=== PATIENT | female | born 1935 | race Caucasian/White ===

== ENCOUNTER 2023-12-20 15:11 | Inpatient (IN) | payer MEDICARE, BC, SELFPAY ==
[2023-12-20 15:40] VITALS: BP 100/52; PULSE 74; RESP 16; TEMP 36.3; O2SAT 92; BMI 24.6
[2023-12-20] MEDS: Acetaminophen 325 MG Tablet 650 MG PO (16:33)
[2023-12-20] MEDS: oxyCODONE 5 MG Tablet PO ×2 (16:33→20:51)
--- NOTE | 2023-12-20 19:36 | HP.PCM_ITS ---
HPI - General General Date of Admission: 12/20/23 Date of Service: 12/20/23 Chief Complaint: Here for rehabilitation. HPI Narrative RENATO SAUCEDA, is a 88 Female who presents with following: Patient lives outside [place], [place]. 12/17/2023 Admit to [facility] with fall, right hip pain. She fell holding a banana split sundae with large cherries, whipped cream. She was not able to eat the ice cream. X-ray showed right hip fracture. 12/18/2023 Orthopedics performed ORIF right hip fracture. WBAT right lower extremity with walker. Plavix stopped. Aspirin 81mg twice daily x 30 days DVT prophylaxis. IV iron given for anemia. PT/OT SNF, Patient lives alone. 12/20/2023 Admit to TCU with debility, here for rehabilitation, strengthening, prior to discharge home alone. [facility] Medical History (Updated 12/20/23 @ 19:[address] Allen Zaldivar MD) Tobacco abuse Vitamin D deficiency Osteoporosis Hyperlipidemia Coronary artery disease Closed right hip fracture Fall Debility Home Medications ?Medication ?Instructions ?Recorded ?Last Taken ?Type acetaminophen 325 mg tablet 650 mg PO Q6H PRN pain (scale 12/20/23 12/19/23 History score 1-5) aspirin 81 mg tablet,delayed 81 mg PO BID heart health 12/20/23 Unknown History release aspirin 81 mg tablet,delayed 81 mg PO DAILY [facility] 12/20/23 Unknown History release cholecalciferol (vitamin D3) 125 125 mcg PO .QSU supplement 12/20/23 Unknown History mcg (5,000 unit) tablet (Vitamin D3) ergocalciferol (vitamin D2) 50,000 50,000 unit PO QODAY supplement 12/20/23 Unknown History unit tablet oxycodone 5 mg tablet 5 mg PO Q8H PRN pain (scale score 12/20/23 12/20/23 History 6-10) sitagliptin phosphate 25 mg tablet 25 mg PO DAILY diabetes 12/20/23 12/18/23 History (Januvia) thyroid (pork) 90 mg tablet 90 mg PO DAILY thyroid 12/20/23 12/20/23 History (Adthyza) Allergy/AdvReac Type Severity Reaction Status Date / Time alendronate sodium (From Allergy Unknown unknown Verified 12/20/23 15:38 Fosamax) adhesive tape Allergy Rash Verified 12/20/23 15:38 celecoxib (From Celebrex) Allergy Rash Verified 12/20/23 15:38 Sulfa (Sulfonamide Allergy Rash Verified 12/20/23 15:38 Antibiotics) thimerosal Allergy unknown Verified 12/20/23 15:38 Family History (Updated 12/20/23 @ 19:[address] Allen Zaldivar MD) Mother CAD (coronary artery disease) Father [place] disease Sister Diabetes Surgical History (Updated 12/20/23 @ 19:[address] Allen Zaldivar MD) History of tubal ligation History of bunionectomy History of cataract surgery History of bladder surgery History of open reduction and internal fixation (ORIF) procedure Social History (Updated 12/20/23 @ 19:[address] Allen Zaldivar MD) household members: none Smoking Status: Current every day smoker tobacco type: cigarettes alcohol intake: current Alcohol type: wine substance use type: does not use ROS Constitutional Constitutional: Reports weakness; Denies chills, fever(s) or weight gain ENT HEENT: Denies headache(s), nasal congestion or nasal discharge Cardiovascular Cardiovascular: Denies chest pain or palpitations Respiratory/Chest Respiratory/Chest: Denies cough, excessive phlegm production or shortness of breath with exertion Gastrointestinal Gastrointestinal: Denies abdominal pain, nausea or vomiting Genitourinary Genitourinary: Denies dysuria Musculoskeletal Musculoskeletal: Denies joint pain or joint swelling Integumentary Integumentary: Denies rash or wounds Neurologic Neurologic: Denies focal weakness, numbness or tingling Psychiatric Psychiatric: Denies anxiety, auditory hallucinations, depression, homicidal ideation or suicidal ideation Vital Signs Vital Signs Vital Signs: 12/20/23 15:40 12/20/23 15:40 Temperature 97.4 F L Temperature Source Oral Pulse Rate 74 Pulse Rhythm Irregular Pulse Strength Normal (2+) Respiratory Rate 16 16 Respiratory Depth Normal Respiratory Pattern Normal Blood Pressure 100/52 L Blood Pressure Mean 68 Blood Pressure Source Monitor Blood Pressure Position Sitting Pulse Ox 92 Oxygen Delivery Method Room Air Room Air Weight Weight: 67.222 kg Body Mass Index (BMI) 24.6 Physical Exam Const alert General Appearance: cooperative HEENT normocephalic Eyes PERRL and EOMs intact bilaterally Neck supple, no JVD and no carotid bruits Resp normal respiratory effort, normal air movement and clear to auscultation bilaterally Cardio regular rate and regular rhythm GI normal to inspection, nondistended, normoactive bowel sounds, non-tender and non-distended Extremity normal capillary refill General Extremity: Negative for edema Skin no rashes or lesions noted General Skin Exam: no breakdown Psych affect normal Appearance: appropriate Assessment & Plan Assessment/Plan (1) Debility: (2) Fall: (3) Closed right hip fracture: (4) Coronary artery disease: (5) Hyperlipidemia: (6) Osteoporosis: (7) Vitamin D deficiency: (8) Tobacco abuse: PLAN: Plan 88 year old female with below past medical history hospitalized for right hip fracture, underwent ORIF right hip fracture 12/18/2023, admitted to TCU with debility, here for rehabilitation, strengthening, prior to discharge home alone. * Debility - PT/OT. * Pain - Tylenol 1000mg q6 prn pain (1-5), Oxycodone 5mg q4 prn pain (6-10). * Bowel - senna/colace 1 tablet bid, Magnesium citrate 300ml daily prn. * Adult immunization - Administer pneumonia vaccine, covid vaccine, flu vaccine as appropriate. * DVT prophylaxis - Aspirin 81mg bid thru 01/17/2024. * Coronary artery disease - Aspirin 81mg daily starting 01/18/2024. * Vitamin D deficiency - D3 125mcg q48, D2 1.25mg qweek. * Diabetes Mellitus II - Tradjenta 5mg daily, monitor sugar. * Skin irritation - Eucerin topical bid. * Hypothyroidism - [place] Thyroid 90mg daily.
[2023-12-20] MEDS: Aspirin E.C. 81 MG Tablet PO (20:51)
[2023-12-20] MEDS: Senna/Docusate Sodium 1 Tablet PO (20:51)
[2023-12-20] MEDS: Petrolatum 33% Tube 1 APPLIC TOPICAL (20:51)
[2023-12-21] MEDS: Thyroid 60 MG Tablet 90 MG PO (05:26)
[2023-12-21 06:08] LABS: Absolute Lymphocyte Count 1.63 X10^3/uL (0.83-4.51); Absolute Neutrophil Count 4.6 X10^3/uL (2.0-7.7); Basophil# 0.04 X10^3/uL; Basophil% 0.5 % (0-1); Eosinophil# 0.18 X10^3/uL; Eosinophils% 2.5 % (0-5); Hematocrit 23.7 % (37-47); Hemoglobin 7.9 g/dL (12.0-15.0); Lymphocyte # 1.63 X10^3/ul (0.83-4.51); Lymphocyte % 22.2 % (19-41); Mean Corp Hgb Conc 33.3 g/dL (32-36); Mean Corpuscular Hgb 33.3 pg (27.0-32.0); Mean Platelet Vol. 10.7 fl (6.2-12.0); Monocyte# 0.82 X10^3/uL; Monocyte% 11.2 % (0-10); NRBC Flagged by Analyzer 0 % (0-5); Neutrophil # 4.56 X10^3/uL (2.7-7.7); Neutrophil % 62.2 % (47-70); Platelet Count 167 K/mm3 (150-450); RBC Distribution Width CV 13.1 % (11.6-14.6); RBC Distribution Width SD 46.9 fl (35.1-43.9); Red Blood Count 2.37 M/mm3 (4.2-5.4); White Blood Count 7.3 K/mm3 (4.4-11.0)
[2023-12-21 06:33] LABS: Anion Gap 4 (5-15); BUN 15 mg/dL (7-18); BUN/Creat Ratio 22.1 RATIO (10-20); Calcium,Total 8.1 mg/dL (8.5-10.1); Chloride 105 mmol/L (98-107); Creatinine, Serum 0.68 mg/dL (0.55-1.02); EST Glomerular Filtration Rate 87 mL/min (>60); Est Glom Filt Rate - Afr Amer 105 mL/min (>60); Estimated Creatinine Clearance 45.42 ml/min; Glucose 152 mg/dL (74-106); Potassium 4.2 mmol/L (3.5-5.1); Sodium Level 136 mmol/L (136-145)
[2023-12-21 06:38] LABS: Bedside Glucose 138 mg/dL (74-106)
--- NOTE | 2023-12-21 08:25 | NURSING ---
Patient has not had BM since 12/17/23. She states she has not eaten much since surgery. Discussed with patient the need to have regular bowel movements and will administer Magnesium Citrate today. Patient verbalized understanding. Will continue to monitor.
[2023-12-21] MEDS: Senna/Docusate Sodium 1 Tablet PO (08:56)
[2023-12-21] MEDS: Magnesium Citrate 300 ML PO (08:57)
[2023-12-21] MEDS: Petrolatum 33% Tube 1 APPLIC TOPICAL ×2 (08:57→21:17)
[2023-12-21] MEDS: LINAGLIPTIN 5 MG TABLET PO (08:57)
[2023-12-21] MEDS: Aspirin E.C. 81 MG Tablet PO ×2 (08:57→21:12)
[2023-12-21] MEDS: Tuberculin,Purif.prot.deriv. 50 TU/ML Vial 0.1 ML ID (09:01)
--- NOTE | 2023-12-21 09:43 | PCM.PN.DRR ---
TCU RX Drug Regimen Review Subjective/Objective Subjective/Objective: Subjective: 88 YOF admitted to TCU 12/20/23 s/p outside hospitalization for a ORIF of the hip which resulted from a fall at home. Patient admitted to TCU for strengthening and rehabilitation prior to discharge home where she resides alone. Objective: Allergies alendronate sodium (From Fosamax) Allergy (Unknown, Verified 12/20/23 15:38) unknown adhesive tape Allergy (Verified 12/20/23 15:38) Rash celecoxib (From Celebrex) Allergy (Verified 12/20/23 15:38) Rash Sulfa (Sulfonamide Antibiotics) Allergy (Verified 12/20/23 15:38) Rash thimerosal Allergy (Verified 12/20/23 15:38) unknown Current Medications Generic Name Dose Route Start Last Admin Trade Name Freq PRN Reason Stop Dose Admin Acetaminophen 1,000 mg 12/20/23 19:50 Acetaminophen 500 Mg Tablet PO Q6H PRN pain (scale score 1-5) Aspirin 81 mg 12/20/23 22:00 12/21/23 08:57 Aspirin E.C. 81 Mg Tablet PO 01/17/24 22:00 81 mg BID NIKKI Administration Aspirin 81 mg 01/18/24 10:00 Aspirin E.C. 81 Mg Tablet PO DAILY [facility] Cholecalciferol 125 mcg 12/22/23 10:00 Cholecalciferol (Vit D3) 125 Mcg Capsule (5,000 Units) PO Q48 NIKKI Ergocalciferol 1.25 mg 12/23/23 10:00 Ergocalciferol 1.25 Mg (50, 000 Unit) Capsule PO Wills@1000 [facility] Linagliptin 5 mg 12/21/23 10:00 12/21/23 08:57 Linagliptin 5 Mg Tablet PO 5 mg DAILY NIKKI Administration Magnesium Citrate 300 ml 12/20/23 19:49 12/21/23 08:57 Magnesium Citrate 300 Ml PO 300 ml DAILY PRN Administration Constipation Multi-Ingredient Cream 1 applic 12/20/23 22:00 12/21/23 08:57 Petrolatum 33% Tube TOPICAL 1 applic BID NIKKI Administration Protocol Oxycodone HCl 5 mg 12/20/23 19:50 12/20/23 20:51 Oxycodone 5 Mg Tablet PO 5 mg Q4H PRN PRN Administration pain (scale score 6-10) Senna/Docusate Sodium 1 tablet 12/20/23 22:00 12/21/23 08:56 Senna/Docusate Sodium 1 Tablet PO 1 tablet BID NIKKI Administration Sodium Chloride 10 - 40 ml 12/20/23 15:43 0.9% Saline Lock 10 Ml Syringe IV UD PRN SALINE FLUSH Thyroid 90 mg 12/21/23 06:00 12/21/23 05:26 Thyroid 60 Mg Tablet PO 90 mg DAILY@0600 NIKKI Administration Tuberculin PPD 0.1 ml 12/21/23 10:00 12/21/23 09:01 Tuberculin,Purif.Prot.Deriv. 50 Tu/Ml Vial ID 12/21/23 10:01 0.1 ml X1 ONE Administration Tuberculin PPD 0.1 ml 12/28/23 10:00 Tuberculin,Purif.Prot.Deriv. 50 Tu/Ml Vial ID 12/28/23 10:01 X1 ONE Problem List Tobacco abuse (Acute) Vitamin D deficiency (Acute) Osteoporosis (Acute) Hyperlipidemia (Acute) Coronary artery disease (Acute) Closed right hip fracture (Acute) Fall (Acute) Debility (Acute) Vital Signs Temp Pulse Resp BP Pulse Ox O2 Del Method 97.4 F L 74 16 100/52 L 92 Room Air 12/20/23 15:40 12/20/23 15:40 12/20/23 15:40 12/20/23 15:40 12/20/23 15:40 12/20/23 15:40 Oxygen Delivery Method Room Air Weight: 67.222 kg Body Mass Index (BMI) 24.6 Sodium 136 mmol/L (136-145) 12/21/23 05:29 Potassium 4.2 mmol/L (3.5-5.1) 12/21/23 05:29 Chloride 105 mmol/L (98-107) 12/21/23 05:29 Carbon Dioxide 27.0 mmol/L (21.0-32.0) 12/21/23 05:29 Anion Gap 4 (5-15) L 12/21/23 05:29 BUN 15 mg/dL (7-18) 12/21/23 05:29 Creatinine 0.68 mg/dL (0.55-1.02) 12/21/23 05:29 Est GFR (MDRD) Af Amer 105 mL/min (>60) 12/21/23 05:29 Est GFR (MDRD) Non-Af 87 mL/min (>60) 12/21/23 05:29 BUN/Creatinine Ratio 22.1 RATIO (10-20) H 12/21/23 05:29 Glucose 152 mg/dL (74-106) H 12/21/23 05:29 Assessment/Plan: 1. Pain: Tylenol 1000mg PO Q6h PRN Pain 1-5, Oxycodone 5mg PO Q4h PRN Pain 6-10. Please continue to monitor for S/S of increased/decreased pain, PRN medication usage, constipation/oversedation/respiratory depression with narcotic usage. -To date, the patient has required one dosage each of Tylenol and Oxycodone. Pre-med hip pain rated 8/10, post-med pain rated 0-4/10. Pain appears managed using this regimen at this time. 2. Post-OP DVT Prophylaxis: Aspirin 81mg PO BID thru 01/17/24 then 81mg PO daily thereafter. Please continue to monitor for S/S bleeding/ bruising, S/S developing post-op blood clot, H/H (hgb 7.9, hct 23.7 on 12/20). 3. Type II Diabetes: Tradjenta 5mg PO Daily. Please continue to monitor for hyper/hypoglycemia, A1c (not on file), blood glucose levels (152 on 12/20). 4. Hypothyroidism: Thyroid 90mg PO Daily. Please continue to monitor TSH levels (none on file), S/S hyper/hypothyroidism. 5. Vitamin D Deficiency: Vitamin D 125mcg PO Q48h, Ergocalciferol 1.25mg PO once weekly. Please continue to monitor Vitamin D levels as clinically indicated (none on file). 6. Skin Dryness: Eucerin Cream topically BID. Please continue to monitor for further skin irritation, medication effectiveness. 7. Bowel: Senna/Docusate 1 tab PO BID, Magnesium Citrate 300mL PO Daily PRN. Please continue to monitor for increased/decreased constipation and/or diarrhea. - to date, the patient does not have a documented bowel movement. Patient was admitted <24hrs ago. If no BM in the next 48hrs, please consider administering PRN medication to help facilitate a BM, given pt is using narcotic medications for pain. Assessment/Plan for indications treated with psychotropic medications: -The patient is not currently being maintained on psychotropic medications at time of medication list review. Medical chart and medication regimen reviewed. The following medication irregularities or issues were identified: 1. Type II Diabetes: The patient is currently being treated for diabetes. No A1c currently on file. Please consider obtaining an A1c if clinically indicated, thank you. 2. Hypothyroid: Please consider obtaining thyroid function tests if clinically indicated. No labs on file, currently on pharmacologic treatment. 3. Vitamin D Deficiency: Patient on once weekly and Q48h Vitamin D at this time. Please consider obtaining a Vitamin D level for this patient if clinically indicated, none on file at present. Thank you. Date Date of Note:: 12/21/23
[2023-12-21] MEDS: oxyCODONE 5 MG Tablet PO ×2 (11:03→21:12)
--- NOTE | 2023-12-21 11:36 | NURSING ---
Supervisor Fertilizer Note; Activity Asset: Dinorah Melo prefers to be called Jolly. Jolly is independent in her choice of daily activities. She stated she will call the [employer] in [place] to bring her communion and welcomes visits from the sanding line operator and therapy dog when available. She watch tv, read and enjoys family. Staff will encourage social activities, remind her of weekly activities and respect her right to say no.
[2023-12-21 12:00] VITALS: PULSE 80; RESP 16; O2SAT 98
--- NOTE | 2023-12-21 13:39 | CASEMGMT ---
Social Work SW met with patient to complete initial assessment. Introduced self and role. Verified/updated contacts. Patient wishes to be DNR-CCA, no intubation. Nursing notified (12/24/23). SW requested pt have child provide copies of advanced directives. Pt could not recall whom she named. SW offered to complete new documents if needed. SW educated to Medicare benefit and copay coverage. Pt's goal is to return home alone at [facility]. SW will continue to follow for DC planning. SUSANA Francisco COSTUME MAKER
[2023-12-21 15:43] VITALS: BP 112/44; PULSE 80; RESP 16; TEMP 36.5; O2SAT 98
[2023-12-21] MEDS: Acetaminophen 500 MG Tablet 1000 MG PO (21:13)
[2023-12-22 06:24] LABS: Bedside Glucose 131 mg/dL (74-106)
[2023-12-22] MEDS: Thyroid 60 MG Tablet 90 MG PO (06:29)
[2023-12-22] MEDS: oxyCODONE 5 MG Tablet PO ×2 (06:33→19:59)
--- NOTE | 2023-12-22 06:39 | NURSING ---
Resident has a long-term hx of tobacco abuse. Offered nicotine patch and resident declines.
[2023-12-22 06:58] LABS: Hemoglobin 8.5 g/dL (12.0-15.0)
[2023-12-22] MEDS: Aspirin E.C. 81 MG Tablet PO ×2 (08:14→20:00)
[2023-12-22] MEDS: LINAGLIPTIN 5 MG TABLET PO (08:14)
[2023-12-22] MEDS: Senna/Docusate Sodium 1 Tablet PO ×2 (08:14→20:00)
[2023-12-22] MEDS: Cholecalciferol (Vit D3) 125 MCG CAPSULE (5,000 UNITS) PO (08:15)
[2023-12-22] MEDS: Petrolatum 33% Tube 1 APPLIC TOPICAL (08:17)
[2023-12-22 15:55] VITALS: BP 107/37; PULSE 74; RESP 16; TEMP 35.8; O2SAT 96
[2023-12-22] MEDS: Acetaminophen 500 MG Tablet 1000 MG PO (19:59)
[2023-12-22 20:05] VITALS: RESP 16
[2023-12-23] MEDS: Thyroid 60 MG Tablet 90 MG PO (05:12)
[2023-12-23 05:24] LABS: Hematocrit 24.1 % (37-47); Hemoglobin 8.2 g/dL (12.0-15.0)
[2023-12-23 06:49] LABS: Bedside Glucose 162 mg/dL (74-106)
[2023-12-23] MEDS: Aspirin E.C. 81 MG Tablet PO ×2 (08:32→18:09)
[2023-12-23] MEDS: Acetaminophen 500 MG Tablet 1000 MG PO (08:36)
[2023-12-23] MEDS: oxyCODONE 5 MG Tablet PO ×3 (08:36→21:04)
[2023-12-23 10:30] VITALS: PULSE 79; RESP 16
[2023-12-23] MEDS: LINAGLIPTIN 5 MG TABLET PO (10:53)
[2023-12-23] MEDS: Senna/Docusate Sodium 1 Tablet PO ×2 (10:53→21:04)
[2023-12-23] MEDS: Ergocalciferol 1.25 MG (50, 000 UNIT) Capsule PO (10:53)
[2023-12-23] MEDS: Petrolatum 33% Tube 1 APPLIC TOPICAL ×2 (10:54→21:05)
[2023-12-23 16:00] VITALS: BP 143/48; PULSE 78; RESP 14; TEMP 36.4; O2SAT 98
[2023-12-24] MEDS: Thyroid 60 MG Tablet 90 MG PO (05:02)
[2023-12-24] MEDS: oxyCODONE 5 MG Tablet PO ×4 (05:03→22:46)
[2023-12-24 05:49] LABS: Hematocrit 23.9 % (37-47)
[2023-12-24 06:37] LABS: Bedside Glucose 141 mg/dL (74-106)
[2023-12-24] MEDS: Cholecalciferol (Vit D3) 125 MCG CAPSULE (5,000 UNITS) PO (07:41)
[2023-12-24] MEDS: LINAGLIPTIN 5 MG TABLET PO (07:41)
[2023-12-24] MEDS: Senna/Docusate Sodium 1 Tablet PO ×2 (07:41→22:49)
[2023-12-24] MEDS: Petrolatum 33% Tube 1 APPLIC TOPICAL ×2 (07:42→22:43)
[2023-12-24] MEDS: Aspirin E.C. 81 MG Tablet PO ×2 (07:42→16:28)
[2023-12-24] MEDS: Iron Polysaccharide Complex 150 MG CAPSULE PO (08:55)
[2023-12-24 09:06] VITALS: PULSE 72; RESP 16; O2SAT 96
[2023-12-24 11:44] VITALS: BP 109/50; PULSE 72; RESP 16; TEMP 36.3; O2SAT 96
[2023-12-25] MEDS: Thyroid 60 MG Tablet 90 MG PO (05:49)
[2023-12-25 06:14] LABS: Bedside Glucose 149 mg/dL (74-106)
[2023-12-25] MEDS: Iron Polysaccharide Complex 150 MG CAPSULE PO (08:48)
[2023-12-25] MEDS: LINAGLIPTIN 5 MG TABLET PO (08:48)
[2023-12-25] MEDS: Senna/Docusate Sodium 1 Tablet PO ×2 (08:49→20:55)
[2023-12-25] MEDS: Petrolatum 33% Tube 1 APPLIC TOPICAL ×2 (08:49→20:55)
[2023-12-25] MEDS: Aspirin E.C. 81 MG Tablet PO ×2 (08:49→16:52)
[2023-12-25 15:57] VITALS: BMI 23.6
[2023-12-25 16:00] VITALS: BP 129/46; PULSE 88; RESP 22; TEMP 36.1; O2SAT 100
[2023-12-25] MEDS: Acetaminophen 500 MG Tablet 1000 MG PO (16:51)
[2023-12-26] MEDS: Acetaminophen 500 MG Tablet 1000 MG PO ×3 (03:26→22:02)
--- NOTE | 2023-12-26 03:34 | NURSING ---
Resident yelling for help from room. This nurse and ION IMPLANT MACHINE OPERATOR entered room and resident was sitting on the edge of her bed. Was transferred to her recliner per another ION IMPLANT MACHINE OPERATOR recently d/t resident request to get out of bed. Call light was on the floor between the recliner and bed. Room camera in use. Bed and chair alarms initiated as this is the second self transfer noted per nursing staff. Positioned in bed for comfort and polar care applied to rt hip. Resident reports rt hip pain and headache. Questions why she was not medicated at bedtime. Informed resident when this nurse assessed pain, she denied any c/o. Has no medication for pain currently scheduled. Does not comprehend the pain scale when explained per this nurse. Refuses Oxycodone. Given Tylenol per order- refer to MAR. Call light w/ in reach. Will continue to monitor.
--- NOTE | 2023-12-26 04:11 | NURSING ---
Addendum entered by Simran Esquivel 12/26/23 08:25: Upon this worker's admission assessment, SW noted cognitive impairment and entered ST order. During IDT Huddle the following day, ST expressed pt does have cognitive impairment, but IDT agreed with additional assistance in the home, pt can return home safely. SW and IDT will address this with family at POC and during ongoing DC planning. Original Note: Left vm for DEYANIRA Khalil, re: cognitive impairment. Resident was living alone prior to hospitalization. Has completed two unassisted transfers per nursing's observation. Experiences difficulty comprehending concepts related to post-op safety awareness w/ mobility. Has difficulty identifying and describing pain when assessed per nursing. Unsure if resident's children are aware of cognitive deficits.
[2023-12-26 05:47] LABS: Hematocrit 24.3 % (37-47); Hemoglobin 7.9 g/dL (12.0-15.0)
[2023-12-26] MEDS: Thyroid 60 MG Tablet 90 MG PO (06:09)
[2023-12-26 06:47] LABS: Bedside Glucose 142 mg/dL (74-106)
[2023-12-26] MEDS: oxyCODONE 5 MG Tablet PO (06:56)
[2023-12-26] MEDS: LINAGLIPTIN 5 MG TABLET PO (09:02)
[2023-12-26] MEDS: Senna/Docusate Sodium 1 Tablet PO ×2 (09:02→22:03)
[2023-12-26] MEDS: Iron Polysaccharide Complex 150 MG CAPSULE PO (09:02)
[2023-12-26] MEDS: Cholecalciferol (Vit D3) 125 MCG CAPSULE (5,000 UNITS) PO (09:02)
[2023-12-26] MEDS: Petrolatum 33% Tube 1 APPLIC TOPICAL ×2 (09:02→22:03)
[2023-12-26] MEDS: Aspirin E.C. 81 MG Tablet PO ×2 (09:02→17:37)
--- NOTE | 2023-12-26 09:05 | CASEMGMT ---
Social Work IDT met with patient and three children for care plan meeting. Discussed patient's progress in PT/OT/ST/SN. Educated to Medicare benefit. Provided pt/family written communication on insurance process and copay coverage during stay. Discussed concerns with cognitive impairment and safety home alone. Family stated pt's granddaughter, who is an aide at a intermediate, will be moving in with pt and assisting. Family did confirm they have noticed a change in her cognition since pt's prior heart attack and it is worse in the evenings. Offered resources such as nonskilled SUPERVISOR ENGINE ASSEMBLY, medical alert, medication dispenser with reminders, MOW. Noted pt may improve with return to own environment. Educated to skilled HHC at time of DC. Offered therapy family training. Family appreciative of assistance. SW will continue to follow for DC planning. Simran Esquivel, AQUARIUM SPECIALIST COUNTER CONTROL OPERATOR
--- NOTE | 2023-12-26 09:55 | NURSING ---
Pt and family updated on positive covid pt.
[2023-12-26 14:53] VITALS: BP 127/52; PULSE 82; RESP 20; TEMP 37.2; O2SAT 97
[2023-12-26] MEDS: Magnesium Citrate 300 ML PO (15:06)
[2023-12-27 05:33] LABS: Hematocrit 26.3 % (37-47); Hemoglobin 8.3 g/dL (12.0-15.0)
[2023-12-27] MEDS: Acetaminophen 500 MG Tablet 1000 MG PO ×3 (05:51→21:08)
[2023-12-27] MEDS: Thyroid 60 MG Tablet 90 MG PO (05:51)
[2023-12-27 06:41] LABS: Bedside Glucose 136 mg/dL (74-106)
--- NOTE | 2023-12-27 09:13 | CASEMGMT ---
BIMS (03/11) and PHQ9() interviews completed on this date for MDS assessment. MARIELENA Bray
[2023-12-27] MEDS: Aspirin E.C. 81 MG Tablet PO ×2 (09:48→18:36)
[2023-12-27] MEDS: Iron Polysaccharide Complex 150 MG CAPSULE PO (09:48)
[2023-12-27] MEDS: LINAGLIPTIN 5 MG TABLET PO (09:49)
[2023-12-27] MEDS: Petrolatum 33% Tube 1 APPLIC TOPICAL ×2 (09:50→21:08)
[2023-12-27] MEDS: oxyCODONE 5 MG Tablet PO ×2 (10:53→18:40)
[2023-12-27 16:00] VITALS: BP 115/44; PULSE 73; RESP 16; TEMP 36.3; O2SAT 99
--- NOTE | 2023-12-27 17:14 | RAD_ITS ---
EXAM: XR RIGHT KNEE, 3 VIEWS CLINICAL INDICATION: Pain. TECHNIQUE: Three views of the right knee. COMPARISON: Hip on the same date. FINDINGS: BONES/JOINTS: Intramedullary fixation of the femur correlate with comparison examination for proximal femoral fracture. Severe arthritic changes of the knee with marginal osteophytes, medial and patellofemoral weightbearing compartment joint space narrowing, and cortical irregularity of the femoral condyle and tibial plateau in the medial compartment. Small joint effusion at the knee. No sclerotic or destructive changes observed. SOFT TISSUES: Mild soft tissue swelling. No radiopaque foreign body. VASCULATURE: Vascular calcifications. RAD/Knee 3 Views IMPRESSION: 1. Intramedullary fixation of the femur correlate with comparison examination for proximal femoral fracture. 2. Small joint effusion at the knee. Extensive degenerative changes at the knee. No acute osseous abnormality. Electronically Signed: Jai Pisano DO at 22:22 EDT ,
--- NOTE | 2023-12-27 18:20 | RAD_ITS ---
EXAM: XR RIGHT HIP WITH PELVIS WHEN PERFORMED, 2 OR 3 VIEWS CLINICAL INDICATION: Pain. TECHNIQUE: Two or three views of the right hip with pelvis when performed. COMPARISON: Knee on the same date. FINDINGS: BONES/JOINTS: Underlying right proximal femur fracture. Essentially anatomic alignment. ORIF of the right femur with intramedullary fixation. Degenerative changes in the lower lumbar spine, SI joints, and bilateral hips. No destructive or sclerotic lesions. Note that overlapping bowel shadows may however obscure fine detail. No widening of the pubic symphysis. SOFT TISSUES: Expected postoperative changes in the surrounding soft tissues. RAD/HIP, UNI W/ Pelvis 2-3 Views IMPRESSION: 1. Underlying right proximal femur fracture. Essentially anatomic alignment. 2. ORIF of the right femur with intramedullary fixation. 3. Degenerative changes in the lower lumbar spine, SI joints, and bilateral hips. Electronically Signed: Jai Pisano DO at 23:52 EDT ,
--- NOTE | 2023-12-27 19:49 | NURSING ---
Patient c/o increased pain to right knee and lower leg and not able to complete therapy d/t pain. Right leg very bruised and swelling noted. Dr. Zaldivar made aware and NO for x-ray to right hip and knee and Doppler to right leg.
[2023-12-27 20:00] VITALS: PULSE 82; O2SAT 97
[2023-12-28] MEDS: Acetaminophen 500 MG Tablet 1000 MG PO ×3 (05:38→21:26)
[2023-12-28] MEDS: Thyroid 60 MG Tablet 90 MG PO (05:38)
[2023-12-28 06:30] LABS: Absolute Lymphocyte Count 1.72 X10^3/uL (0.83-4.51); Absolute Neutrophil Count 4.1 X10^3/uL (2.0-7.7); Basophil# 0.03 X10^3/uL; Basophil% 0.4 % (0-1); Eosinophils% 2.9 % (0-5); Hematocrit 26.1 % (37-47); Hemoglobin 8.2 g/dL (12.0-15.0); Lymphocyte # 1.72 X10^3/ul (0.83-4.51); Lymphocyte % 25.3 % (19-41); Mean Corp Hgb Conc 31.4 g/dL (32-36); Mean Corpuscular Hgb 33.9 pg (27.0-32.0); Mean Corpuscular Volume 107.9 fL (81-99); Mean Platelet Vol. 9.4 fl (6.2-12.0); Monocyte# 0.58 X10^3/uL; Monocyte% 8.5 % (0-10); NRBC Flagged by Analyzer 0.3 % (0-5); Neutrophil # 4.11 X10^3/uL (2.7-7.7); Neutrophil % 60.5 % (47-70); Platelet Count 342 K/mm3 (150-450); RBC Distribution Width CV 15.9 % (11.6-14.6); RBC Distribution Width SD 60.3 fl (35.1-43.9); Red Blood Count 2.42 M/mm3 (4.2-5.4); White Blood Count 6.8 K/mm3 (4.4-11.0)
[2023-12-28 06:45] LABS: Bedside Glucose 139 mg/dL (74-106)
[2023-12-28 07:13] LABS: Anion Gap 4 (5-15); BUN 14 mg/dL (7-18); Calcium,Total 8.6 mg/dL (8.5-10.1); Chloride 107 mmol/L (98-107); Creatinine, Serum 0.78 mg/dL (0.55-1.02); EST Glomerular Filtration Rate 75 mL/min (>60); Est Glom Filt Rate - Afr Amer 90 mL/min (>60); Estimated Creatinine Clearance 45.42 ml/min; Glucose 134 mg/dL (74-106); Potassium 4.5 mmol/L (3.5-5.1); Sodium Level 138 mmol/L (136-145)
[2023-12-28] MEDS: Iron Polysaccharide Complex 150 MG CAPSULE PO (09:21)
[2023-12-28] MEDS: Aspirin E.C. 81 MG Tablet PO ×2 (09:21→16:27)
[2023-12-28] MEDS: predniSONE 10 MG Tablet PO (09:22)
[2023-12-28] MEDS: Pantoprazole Sodium 40 MG Tablet PO (09:23)
[2023-12-28] MEDS: Cholecalciferol (Vit D3) 125 MCG CAPSULE (5,000 UNITS) PO (09:23)
[2023-12-28] MEDS: LINAGLIPTIN 5 MG TABLET PO (09:23)
[2023-12-28] MEDS: Petrolatum 33% Tube 1 APPLIC TOPICAL ×2 (09:24→21:26)
[2023-12-28] MEDS: oxyCODONE 5 MG Tablet PO ×4 (09:29→22:40)
--- NOTE | 2023-12-28 11:08 | NURSING ---
Venous Doppler performed, negative for DVT. Patient, daughter updated.
[2023-12-28 11:13] VITALS: PULSE 72; RESP 16; O2SAT 96
[2023-12-28 11:25] VITALS: BP 123/46; PULSE 72; RESP 16; TEMP 36.3; O2SAT 96
--- NOTE | 2023-12-28 12:59 | NURSING ---
Transmission Engineer Note; MDS for 12/27/2023 Complete
[2023-12-28] MEDS: Tuberculin,Purif.prot.deriv. 50 TU/ML Vial 0.1 ML ID (14:05)
[2023-12-28] MEDS: Senna/Docusate Sodium 1 Tablet PO (21:26)
[2023-12-28 22:05] LABS: Bacteria 0 SEEN /hpf (None Seen); Color, Urine Yellow (Yellow); Glucose, Dipstick 250 mg/dl (Normal); Ketone-Dipstick Negative (Negative); Leukocyte Esterase-Dipstick 25 /ul (Negative); Mucous, Urine 0 SEEN /hpf (<or=2+); Nitrite-Dipstick Negative (Negative); Occult Blood-Urine 10 /ul (Negative); Protein-Dipstick Negative (Negative); Squamous Epithelial Cells - UA 0 SEEN /hpf (5-10); Urine Bilirubin Dipstick Negative (Negative); Urine Clarity Clear (Clear); Urine Urobilinogen Normal (Normal)
[2023-12-28 22:21] LABS: Red Blood Cells-Urine 0-5 SEEN /hpf (0-5); White Blood Cells 0-5 SEEN /hpf (0-5)
[2023-12-29 04:59] LABS: Hematocrit 26.1 % (37-47); Hemoglobin 8.2 g/dL (12.0-15.0)
[2023-12-29] MEDS: Thyroid 60 MG Tablet 90 MG PO (05:46)
[2023-12-29] MEDS: Acetaminophen 500 MG Tablet 1000 MG PO ×3 (05:46→22:30)
[2023-12-29 06:51] LABS: Bedside Glucose 143 mg/dL (74-106)
[2023-12-29] MEDS: Senna/Docusate Sodium 1 Tablet PO (08:19)
[2023-12-29] MEDS: Iron Polysaccharide Complex 150 MG CAPSULE PO (08:19)
[2023-12-29] MEDS: predniSONE 10 MG Tablet PO (08:19)
[2023-12-29] MEDS: Aspirin E.C. 81 MG Tablet PO ×2 (08:19→17:48)
[2023-12-29] MEDS: Pantoprazole Sodium 40 MG Tablet PO (08:19)
[2023-12-29] MEDS: LINAGLIPTIN 5 MG TABLET PO (08:19)
[2023-12-29] MEDS: Petrolatum 33% Tube 1 APPLIC TOPICAL ×2 (08:20→22:30)
[2023-12-29] MEDS: oxyCODONE 5 MG Tablet PO ×3 (13:00→22:28)
[2023-12-29 14:06] VITALS: BP 123/43; PULSE 85; RESP 20; TEMP 36.9; O2SAT 97
--- NOTE | 2023-12-29 17:38 | RAD_ITS ---
EXAM: XR RIGHT ANKLE COMPLETE, 3 OR MORE VIEWS CLINICAL INDICATION: Pain TECHNIQUE: Frontal, lateral and oblique views of the right ankle. COMPARISON: No relevant prior studies available. FINDINGS: BONES/JOINTS: Mild joint space narrowing, especially laterally. No acute fracture. No subluxation. Normal alignment. No sclerotic or destructive changes observed. SOFT TISSUES: Mild soft tissue swelling, especially laterally. No radiopaque foreign body. RAD/Ankle min 3 Views IMPRESSION: Mild soft tissue swelling. Electronically Signed: Elida Velarde MD at 21:10 EDT ,
[2023-12-30] MEDS: oxyCODONE 5 MG Tablet PO ×3 (02:40→21:37)
[2023-12-30] MEDS: Acetaminophen 500 MG Tablet 1000 MG PO ×3 (06:20→21:34)
[2023-12-30] MEDS: Thyroid 60 MG Tablet 90 MG PO (06:21)
[2023-12-30 06:43] LABS: Bedside Glucose 98 mg/dL (74-106)
[2023-12-30] MEDS: LINAGLIPTIN 5 MG TABLET PO (08:58)
[2023-12-30] MEDS: Pantoprazole Sodium 40 MG Tablet PO (08:58)
[2023-12-30] MEDS: Senna/Docusate Sodium 1 Tablet PO ×2 (08:58→21:33)
[2023-12-30] MEDS: Iron Polysaccharide Complex 150 MG CAPSULE PO (08:58)
[2023-12-30] MEDS: Aspirin E.C. 81 MG Tablet PO ×2 (08:58→17:41)
[2023-12-30] MEDS: predniSONE 10 MG Tablet PO (08:58)
[2023-12-30] MEDS: Ergocalciferol 1.25 MG (50, 000 UNIT) Capsule PO (09:00)
[2023-12-30] MEDS: Cholecalciferol (Vit D3) 125 MCG CAPSULE (5,000 UNITS) PO (09:00)
[2023-12-30] MEDS: Petrolatum 33% Tube 1 APPLIC TOPICAL ×2 (11:19→21:34)
[2023-12-30 13:07] VITALS: BP 104/50; PULSE 72; RESP 20; TEMP 36.7; O2SAT 99
[2023-12-31] MEDS: Thyroid 60 MG Tablet 90 MG PO (05:27)
[2023-12-31] MEDS: oxyCODONE 5 MG Tablet PO ×4 (05:29→22:30)
[2023-12-31] MEDS: Acetaminophen 500 MG Tablet 1000 MG PO ×3 (05:30→22:14)
[2023-12-31 06:17] LABS: Bedside Glucose 99 mg/dL (74-106)
[2023-12-31 08:05] LABS: Hematocrit 27.6 % (37-47); Hemoglobin 8.8 g/dL (12.0-15.0)
[2023-12-31] MEDS: Aspirin E.C. 81 MG Tablet PO ×2 (09:20→17:32)
[2023-12-31] MEDS: Pantoprazole Sodium 40 MG Tablet PO (09:20)
[2023-12-31] MEDS: Iron Polysaccharide Complex 150 MG CAPSULE PO (09:20)
[2023-12-31] MEDS: predniSONE 10 MG Tablet PO (09:20)
[2023-12-31] MEDS: Senna/Docusate Sodium 1 Tablet PO ×2 (09:20→22:14)
[2023-12-31] MEDS: LINAGLIPTIN 5 MG TABLET PO (09:21)
[2023-12-31] MEDS: Petrolatum 33% Tube 1 APPLIC TOPICAL ×2 (09:24→22:15)
--- NOTE | 2023-12-31 09:42 | MDS.RN ---
Information for the MDS was obtained from review of the clinical record, interview of resident, staff, and direct observation of resident?s care.
[2023-12-31 16:00] VITALS: BP 129/43; PULSE 75; RESP 18; TEMP 36.5; O2SAT 98
[2023-12-31] MEDS: Magnesium Citrate 300 ML PO (18:19)
[2024-01-01] MEDS: Thyroid 60 MG Tablet 90 MG PO (05:47)
[2024-01-01] MEDS: Acetaminophen 500 MG Tablet 1000 MG PO ×3 (05:48→20:37)
[2024-01-01 06:40] LABS: Bedside Glucose 151 mg/dL (74-106)
[2024-01-01 06:55] VITALS: RESP 16
[2024-01-01 08:43] VITALS: BP 113/60; PULSE 69; RESP 16; TEMP 36.1; O2SAT 97
[2024-01-01] MEDS: oxyCODONE 5 MG Tablet PO ×2 (08:46→20:37)
[2024-01-01] MEDS: Aspirin E.C. 81 MG Tablet PO ×2 (08:47→18:24)
[2024-01-01] MEDS: Iron Polysaccharide Complex 150 MG CAPSULE PO (08:47)
[2024-01-01] MEDS: predniSONE 10 MG Tablet PO (08:48)
[2024-01-01] MEDS: Petrolatum 33% Tube 1 APPLIC TOPICAL ×2 (08:48→20:30)
[2024-01-01] MEDS: LINAGLIPTIN 5 MG TABLET PO (08:49)
[2024-01-01] MEDS: Pantoprazole Sodium 40 MG Tablet PO (08:49)
[2024-01-01] MEDS: Cholecalciferol (Vit D3) 125 MCG CAPSULE (5,000 UNITS) PO (08:50)
--- NOTE | 2024-01-01 09:23 | CASEMGMT ---
Social Work SW received call from dtrAzucena, inquiring about insurance information and DC planning. SW reeducated to Medicare benefit and encouraged to contact secondary insurance to ensure copay coverage. Dtr stated her brother plans to call the secondary insurance to inquire. SW educated this worker will provide advanced notice for setting a DC date when mutually agreed upon DC goals are met, along with coordinating any needs at DC. SW reiterated pt's need for additional assistance in the home, but will provide any updated recommendations at time of DC. Dtr also requested to speak with Dr. Zaldivar. SW provided written communication to to call this evening. Dtr appreciative. SW will continue to follow for DC planning. SUSANA FranciscoW
[2024-01-01 09:36] VITALS: BMI 23.8
[2024-01-01] MEDS: Gabapentin 100 MG Capsule PO (18:25)
[2024-01-01] MEDS: Senna/Docusate Sodium 1 Tablet PO (20:30)
[2024-01-02] MEDS: oxyCODONE 5 MG Tablet PO ×2 (05:33→20:58)
[2024-01-02] MEDS: Thyroid 60 MG Tablet 90 MG PO (05:33)
[2024-01-02] MEDS: Acetaminophen 500 MG Tablet 1000 MG PO ×3 (05:33→20:56)
[2024-01-02 05:45] VITALS: RESP 15
[2024-01-02 06:38] LABS: Bedside Glucose 90 mg/dL (74-106)
[2024-01-02] MEDS: Gabapentin 100 MG Capsule PO ×3 (09:21→17:02)
[2024-01-02] MEDS: Iron Polysaccharide Complex 150 MG CAPSULE PO (09:22)
[2024-01-02] MEDS: Pantoprazole Sodium 40 MG Tablet PO (09:22)
[2024-01-02] MEDS: Aspirin E.C. 81 MG Tablet PO ×2 (09:22→17:02)
[2024-01-02] MEDS: LINAGLIPTIN 5 MG TABLET PO (09:22)
[2024-01-02] MEDS: predniSONE 10 MG Tablet PO (09:22)
[2024-01-02] MEDS: Petrolatum 33% Tube 1 APPLIC TOPICAL ×2 (09:22→20:55)
[2024-01-02 11:27] VITALS: BP 121/40; PULSE 70; RESP 16; TEMP 36.6; O2SAT 92
[2024-01-03 06:30] LABS: Bedside Glucose 123 mg/dL (74-106)
[2024-01-03] MEDS: Thyroid 60 MG Tablet 90 MG PO (06:34)
[2024-01-03] MEDS: Acetaminophen 500 MG Tablet 1000 MG PO ×2 (06:34→21:16)
[2024-01-03] MEDS: Gabapentin 100 MG Capsule PO ×2 (08:55→17:01)
[2024-01-03] MEDS: Cholecalciferol (Vit D3) 125 MCG CAPSULE (5,000 UNITS) PO (08:55)
[2024-01-03] MEDS: Pantoprazole Sodium 40 MG Tablet PO (08:56)
[2024-01-03] MEDS: LINAGLIPTIN 5 MG TABLET PO (08:56)
[2024-01-03] MEDS: Iron Polysaccharide Complex 150 MG CAPSULE PO (08:56)
[2024-01-03] MEDS: Aspirin E.C. 81 MG Tablet PO ×2 (08:57→17:01)
[2024-01-03] MEDS: Petrolatum 33% Tube 1 APPLIC TOPICAL (08:57)
[2024-01-03 10:00] VITALS: RESP 15
--- NOTE | 2024-01-03 11:38 | NURSING ---
PT AND FAMILY NOTIFIED OF PT ON UNIT TESTING POSITIVE FOR COVID
--- NOTE | 2024-01-03 11:39 | NURSING ---
PT AND FAMILY NOTIFIED OF PT ON UNIT TESTING POSITIVE FOR COVID
[2024-01-03 16:00] VITALS: BP 120/52; PULSE 72; RESP 18; TEMP 36.8; O2SAT 95
[2024-01-03] MEDS: oxyCODONE 5 MG Tablet PO ×2 (17:01→21:14)
[2024-01-04] MEDS: Thyroid 60 MG Tablet 90 MG PO (06:00)
[2024-01-04] MEDS: Acetaminophen 500 MG Tablet 1000 MG PO ×3 (06:02→22:25)
[2024-01-04 06:40] LABS: Bedside Glucose 121 mg/dL (74-106)
[2024-01-04 07:21] LABS: Absolute Lymphocyte Count 2.01 X10^3/uL (0.83-4.51); Absolute Neutrophil Count 4.5 X10^3/uL (2.0-7.7); Basophil# 0.06 X10^3/uL; Basophil% 0.8 % (0-1); Eosinophil# 0.27 X10^3/uL; Eosinophils% 3.5 % (0-5); Hematocrit 27.9 % (37-47); Hemoglobin 8.8 g/dL (12.0-15.0); Lymphocyte # 2.01 X10^3/ul (0.83-4.51); Lymphocyte % 25.9 % (19-41); Mean Corp Hgb Conc 31.5 g/dL (32-36); Mean Corpuscular Volume 107.7 fL (81-99); Mean Platelet Vol. 9.3 fl (6.2-12.0); Monocyte# 0.76 X10^3/uL; Monocyte% 9.8 % (0-10); NRBC Flagged by Analyzer 0.3 % (0-5); Neutrophil # 4.52 X10^3/uL (2.7-7.7); Neutrophil % 58.3 % (47-70); Platelet Count 370 K/mm3 (150-450); RBC Distribution Width CV 15.5 % (11.6-14.6); RBC Distribution Width SD 60.7 fl (35.1-43.9); Red Blood Count 2.59 M/mm3 (4.2-5.4); White Blood Count 7.8 K/mm3 (4.4-11.0)
[2024-01-04 07:57] LABS: Anion Gap 5 (5-15); BUN 20 mg/dL (7-18); BUN/Creat Ratio 25.6 RATIO (10-20); Calcium,Total 8.2 mg/dL (8.5-10.1); Chloride 110 mmol/L (98-107); Creatinine, Serum 0.78 mg/dL (0.55-1.02); EST Glomerular Filtration Rate 74 mL/min (>60); Est Glom Filt Rate - Afr Amer 90 mL/min (>60); Estimated Creatinine Clearance 44.58 ml/min; Glucose 139 mg/dL (74-106); Potassium 4.4 mmol/L (3.5-5.1); Sodium Level 140 mmol/L (136-145)
[2024-01-04] MEDS: Gabapentin 100 MG Capsule PO ×3 (08:32→17:13)
[2024-01-04] MEDS: LINAGLIPTIN 5 MG TABLET PO (08:33)
[2024-01-04] MEDS: Iron Polysaccharide Complex 150 MG CAPSULE PO (08:33)
[2024-01-04] MEDS: Aspirin E.C. 81 MG Tablet PO ×2 (08:33→17:13)
[2024-01-04] MEDS: oxyCODONE 5 MG Tablet PO (10:55)
[2024-01-04 16:00] VITALS: BP 110/49; PULSE 67; RESP 14; TEMP 35.6; O2SAT 99
[2024-01-04] MEDS: Petrolatum 33% Tube 1 APPLIC TOPICAL (22:26)
[2024-01-05] MEDS: Acetaminophen 500 MG Tablet 1000 MG PO ×3 (06:16→21:47)
[2024-01-05] MEDS: Thyroid 60 MG Tablet 90 MG PO (06:16)
[2024-01-05 07:05] LABS: Bedside Glucose 120 mg/dL (74-106)
[2024-01-05] MEDS: Cholecalciferol (Vit D3) 125 MCG CAPSULE (5,000 UNITS) PO (08:28)
[2024-01-05] MEDS: Iron Polysaccharide Complex 150 MG CAPSULE PO (08:28)
[2024-01-05] MEDS: LINAGLIPTIN 5 MG TABLET PO (08:28)
[2024-01-05] MEDS: Gabapentin 100 MG Capsule PO ×3 (08:28→17:12)
[2024-01-05] MEDS: Aspirin E.C. 81 MG Tablet PO ×2 (08:28→17:12)
[2024-01-05] MEDS: Petrolatum 33% Tube 1 APPLIC TOPICAL ×2 (08:29→21:47)
[2024-01-05 15:45] VITALS: BP 117/40; PULSE 81; RESP 16; TEMP 36.2; O2SAT 99
[2024-01-05 20:20] VITALS: PULSE 73; O2SAT 99
[2024-01-05] MEDS: oxyCODONE 5 MG Tablet PO (20:23)
[2024-01-06] MEDS: Thyroid 60 MG Tablet 90 MG PO (05:52)
[2024-01-06] MEDS: Acetaminophen 500 MG Tablet 1000 MG PO ×3 (05:53→20:53)
[2024-01-06 06:42] LABS: Bedside Glucose 119 mg/dL (74-106)
--- NOTE | 2024-01-06 09:00 | NURSING ---
Daughter called to say she would be picking patient up at 11am for a family event. Explained to her that even though ortho surgeon said she could go BLADIMIR, it needed to be ok'd by medical services assistant due to the status of our unit. Talked to Dr. Zaldivar. Ok'd BLADIMIR for today.
[2024-01-06 09:05] VITALS: BP 127/45; PULSE 76; RESP 16; TEMP 36.7; O2SAT 97
[2024-01-06] MEDS: Gabapentin 100 MG Capsule PO ×3 (09:08→17:42)
[2024-01-06] MEDS: Aspirin E.C. 81 MG Tablet PO ×2 (09:08→17:42)
[2024-01-06] MEDS: Iron Polysaccharide Complex 150 MG CAPSULE PO (09:08)
[2024-01-06] MEDS: LINAGLIPTIN 5 MG TABLET PO (09:09)
[2024-01-06] MEDS: Ergocalciferol 1.25 MG (50, 000 UNIT) Capsule PO (09:09)
[2024-01-06] MEDS: Senna/Docusate Sodium 1 Tablet PO ×2 (09:10→20:53)
[2024-01-06] MEDS: Petrolatum 33% Tube 1 APPLIC TOPICAL ×2 (09:11→20:53)
--- NOTE | 2024-01-06 11:15 | NURSING ---
Patient off unit with family.
[2024-01-06 20:45] VITALS: PULSE 76; O2SAT 98
[2024-01-07 04:29] VITALS: PULSE 70; O2SAT 99
[2024-01-07] MEDS: Acetaminophen 500 MG Tablet 1000 MG PO ×3 (05:48→20:59)
[2024-01-07] MEDS: Thyroid 60 MG Tablet 90 MG PO (05:48)
[2024-01-07 06:02] LABS: Hematocrit 31.2 % (37-47); Hemoglobin 9.9 g/dL (12.0-15.0)
[2024-01-07 06:11] LABS: Bedside Glucose 127 mg/dL (74-106)
[2024-01-07] MEDS: Senna/Docusate Sodium 1 Tablet PO ×2 (08:32→21:00)
[2024-01-07] MEDS: Cholecalciferol (Vit D3) 125 MCG CAPSULE (5,000 UNITS) PO (08:32)
[2024-01-07] MEDS: Iron Polysaccharide Complex 150 MG CAPSULE PO (08:32)
[2024-01-07] MEDS: Petrolatum 33% Tube 1 APPLIC TOPICAL ×2 (08:32→20:59)
[2024-01-07] MEDS: LINAGLIPTIN 5 MG TABLET PO (08:32)
[2024-01-07] MEDS: Aspirin E.C. 81 MG Tablet PO ×2 (08:33→17:40)
[2024-01-07] MEDS: Gabapentin 100 MG Capsule PO ×3 (08:35→17:40)
[2024-01-07 14:12] VITALS: BP 142/53; PULSE 72; RESP 16; TEMP 36.7; O2SAT 99
[2024-01-07] MEDS: oxyCODONE 5 MG Tablet PO (17:39)
[2024-01-08 04:13] VITALS: PULSE 77; RESP 16; O2SAT 97
[2024-01-08] MEDS: Thyroid 60 MG Tablet 90 MG PO (05:51)
[2024-01-08] MEDS: Acetaminophen 500 MG Tablet 1000 MG PO ×3 (05:51→21:18)
[2024-01-08 06:27] LABS: Bedside Glucose 125 mg/dL (74-106)
[2024-01-08] MEDS: Gabapentin 100 MG Capsule PO ×3 (07:56→17:21)
[2024-01-08] MEDS: Iron Polysaccharide Complex 150 MG CAPSULE PO (07:57)
[2024-01-08] MEDS: Petrolatum 33% Tube 1 APPLIC TOPICAL ×2 (07:57→21:17)
[2024-01-08] MEDS: Aspirin E.C. 81 MG Tablet PO ×2 (07:57→17:21)
[2024-01-08] MEDS: LINAGLIPTIN 5 MG TABLET PO (07:57)
[2024-01-08 12:05] VITALS: BP 141/52; PULSE 79; RESP 16; TEMP 36.4; O2SAT 98
--- NOTE | 2024-01-08 13:38 | CASEMGMT ---
Social Work SW left VM with dtrZulma, to discuss DC plans for pt. Will continue to follow. Simran Esquivel, HEEL VARNISHER GAS FURNACE INSTALLER
[2024-01-08 14:57] VITALS: BMI 23.3
--- NOTE | 2024-01-08 15:57 | NURSING ---
Updated patient that a staff member tested positive for covid, she did not want family updated.
[2024-01-09] MEDS: oxyCODONE 5 MG Tablet PO (04:32)
[2024-01-09 04:36] VITALS: PULSE 77; RESP 18; O2SAT 96
[2024-01-09] MEDS: Thyroid 60 MG Tablet 90 MG PO (06:05)
[2024-01-09] MEDS: Acetaminophen 500 MG Tablet 1000 MG PO ×3 (06:05→17:14)
[2024-01-09 06:56] LABS: Bedside Glucose 140 mg/dL (74-106)
[2024-01-09] MEDS: Gabapentin 100 MG Capsule PO ×3 (08:54→17:15)
[2024-01-09] MEDS: Aspirin E.C. 81 MG Tablet PO ×2 (08:55→17:15)
[2024-01-09] MEDS: Senna/Docusate Sodium 1 Tablet PO (08:55)
[2024-01-09] MEDS: Iron Polysaccharide Complex 150 MG CAPSULE PO (08:55)
[2024-01-09] MEDS: Petrolatum 33% Tube 1 APPLIC TOPICAL ×2 (08:56→21:44)
[2024-01-09] MEDS: Cholecalciferol (Vit D3) 125 MCG CAPSULE (5,000 UNITS) PO (08:56)
[2024-01-09] MEDS: LINAGLIPTIN 5 MG TABLET PO (08:56)
--- NOTE | 2024-01-09 12:46 | CASEMGMT ---
Social Work SW phoned dtr, Zulma, again to discuss DC plans. Dtr stated she is not sure pt is ready to DC, she will need to talk with siblings, and pt has plenty more Medicare days to use before discharging. SW reeducated to Medicare benefit and the need for pt to meet criteria. Pt is progressing well, SBA, and if gddtr still plans on staying with pt at DC, IDT is ready to set DC date. SW offered one more week, (EDC 01/16). Dtr expressed understanding and family is still working on getting gddtr paid to care for pt through an agency. Dtr will speak with siblings and her sister, Azucena, will likely update this worker. SW will continue to follow. SUSANA FranciscoW
[2024-01-09 15:15] VITALS: BP 140/47; PULSE 71; RESP 14; TEMP 36.8; O2SAT 99
[2024-01-09] MEDS: Ensure Plus High Protein 120 ML LIQUID PO (21:44)
[2024-01-10] MEDS: Acetaminophen 500 MG Tablet 1000 MG PO ×3 (05:24→21:03)
[2024-01-10] MEDS: Thyroid 60 MG Tablet 90 MG PO (05:24)
[2024-01-10 06:20] LABS: Bedside Glucose 134 mg/dL (74-106)
--- NOTE | 2024-01-10 07:37 | NURSING ---
9 braulio removed from upper incision and 12 braulio removed from lower surgical incision to R hip. Pt andreas. well. No s/x of infection or dehiscence. ABD pad applied for protection.
[2024-01-10 08:49] VITALS: BP 122/46; PULSE 69; RESP 16; TEMP 36.3; O2SAT 98
[2024-01-10] MEDS: LINAGLIPTIN 5 MG TABLET PO (08:54)
[2024-01-10] MEDS: Gabapentin 100 MG Capsule PO ×3 (08:54→18:16)
[2024-01-10] MEDS: Aspirin E.C. 81 MG Tablet PO ×3 (08:54→18:16)
[2024-01-10] MEDS: oxyCODONE 5 MG Tablet PO ×2 (08:54→21:08)
[2024-01-10] MEDS: Iron Polysaccharide Complex 150 MG CAPSULE PO (08:55)
[2024-01-10] MEDS: Petrolatum 33% Tube 1 APPLIC TOPICAL ×2 (08:56→21:02)
[2024-01-10] MEDS: Ensure Plus High Protein 120 ML LIQUID PO ×2 (08:58→21:02)
--- NOTE | 2024-01-10 14:16 | CASEMGMT ---
Social Work OT notified this worker that therapy training with gdtr went well and all in agreement to discuss DC plans. Recommending HHC, FWW, BSC, and transport w/c. SW left VM with dtrAzucena, to review DC plans. Simran Esquivel, SUSANA SHUTTLE FITTING SUPERVISOR
[2024-01-10 20:00] VITALS: PULSE 74; O2SAT 99
[2024-01-11 05:50] LABS: Absolute Lymphocyte Count 1.66 X10^3/uL (0.83-4.51); Absolute Neutrophil Count 3.4 X10^3/uL (2.0-7.7); Basophil# 0.03 X10^3/uL; Basophil% 0.5 % (0-1); Eosinophil# 0.19 X10^3/uL; Eosinophils% 3.2 % (0-5); Hematocrit 30.2 % (37-47); Hemoglobin 9.5 g/dL (12.0-15.0); Lymphocyte # 1.66 X10^3/ul (0.83-4.51); Lymphocyte % 27.9 % (19-41); Mean Corp Hgb Conc 31.5 g/dL (32-36); Mean Corpuscular Hgb 33.7 pg (27.0-32.0); Mean Corpuscular Volume 107.1 fL (81-99); Mean Platelet Vol. 9.3 fl (6.2-12.0); Monocyte# 0.62 X10^3/uL; Monocyte% 10.4 % (0-10); NRBC Flagged by Analyzer 0 % (0-5); Neutrophil % 57.3 % (47-70); Platelet Count 298 K/mm3 (150-450); RBC Distribution Width CV 14.6 % (11.6-14.6); RBC Distribution Width SD 57.6 fl (35.1-43.9); Red Blood Count 2.82 M/mm3 (4.2-5.4); White Blood Count 5.9 K/mm3 (4.4-11.0)
[2024-01-11] MEDS: Acetaminophen 500 MG Tablet 1000 MG PO ×3 (05:56→20:46)
[2024-01-11] MEDS: Thyroid 60 MG Tablet 90 MG PO (05:57)
[2024-01-11 06:03] LABS: Anion Gap 4 (5-15); BUN 20 mg/dL (7-18); BUN/Creat Ratio 26.7 RATIO (10-20); Calcium,Total 8.8 mg/dL (8.5-10.1); Chloride 106 mmol/L (98-107); Creatinine, Serum 0.75 mg/dL (0.55-1.02); EST Glomerular Filtration Rate 78 mL/min (>60); Est Glom Filt Rate - Afr Amer 94 mL/min (>60); Estimated Creatinine Clearance 44.58 ml/min; Glucose 138 mg/dL (74-106); Potassium 4.3 mmol/L (3.5-5.1); Sodium Level 137 mmol/L (136-145)
[2024-01-11 06:33] LABS: Bedside Glucose 121 mg/dL (74-106)
[2024-01-11] MEDS: Aspirin E.C. 81 MG Tablet PO ×2 (07:48→17:20)
[2024-01-11] MEDS: Cholecalciferol (Vit D3) 125 MCG CAPSULE (5,000 UNITS) PO (07:48)
[2024-01-11] MEDS: Ensure Plus High Protein 120 ML LIQUID PO ×2 (07:48→20:42)
[2024-01-11] MEDS: LINAGLIPTIN 5 MG TABLET PO (07:48)
[2024-01-11] MEDS: Gabapentin 100 MG Capsule PO ×3 (07:48→17:20)
[2024-01-11] MEDS: Iron Polysaccharide Complex 150 MG CAPSULE PO (07:48)
[2024-01-11] MEDS: Petrolatum 33% Tube 1 APPLIC TOPICAL ×2 (07:48→20:42)
[2024-01-11 09:06] VITALS: BP 117/40; PULSE 68; RESP 16; TEMP 36.3; O2SAT 98
[2024-01-11] MEDS: Menthol/Lanolin/Calamine/Znox 113 GM Tube 1 APPLIC TOPICAL ×2 (10:23→20:42)
--- NOTE | 2024-01-11 13:26 | CASEMGMT ---
Addendum entered by Simran Esquivel 01/11/24 16:02: [facility] Addendum entered by Simran Esquivel 01/11/24 14:17: Dtr provided HHC preferences: [facility], [facility], [facility], [facility]. SW referred to [facility] via [employer]. Original Note: Social Work Received call from dtr, Azucena, requesting to set pt's DC for 01/18. IDT agreeable. SW inquired about DME needs: FWW, transport w/c and BSC. SW educated that insurance will only cover one ambulation device. Dtr requesting transport w/c and BSC through [employer] and she will purchase FWW. SW agreed. Inquired about skilled HHC - recommending PT/OT/ST and offered list of providers with quality and resource data via [employer] Guide. Dtr agreed and provided email address to send the list. Dtr transport. SW sent referral to [facility] via [employer]. 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
--- NOTE | 2024-01-11 14:35 | PCM.DC.SUM ---
Providers Date of Admission: 12/20/23 Reason For Visit: RIGHT HIP FRACTURE Diagnosis Discharge Diagnosis (1) Debility: Status: Acute Code(s): R53.81 - Other malaise (2) Fall: Status: Acute Code(s): W19.XXXA - Unspecified fall, initial encounter (3) Closed right hip fracture: Status: Acute Code(s): S72.001A - Fracture of unspecified part of neck of right femur, initial encounter for closed fracture (4) Coronary artery disease: Status: Acute Code(s): I25.10 - Atherosclerotic heart disease of [place] coronary artery without angina pectoris (5) Hyperlipidemia: Status: Acute Code(s): E78.5 - Hyperlipidemia, unspecified (6) Osteoporosis: Status: Acute Code(s): M81.0 - Age-related osteoporosis without current pathological fracture (7) Vitamin D deficiency: Status: Acute Code(s): E55.9 - Vitamin D deficiency, unspecified (8) Tobacco abuse: Status: Acute Code(s): Z72.0 - Tobacco use Plan 88 year old female with below past medical history hospitalized for right hip fracture, underwent ORIF right hip fracture 12/18/2023, admitted to TCU with debility, here for rehabilitation, strengthening, prior to discharge home alone. Debility - PT/OT. Pain - Tylenol 1000mg q6 prn pain (1-5), Oxycodone 5mg q4 prn pain (6-10). Bowel - senna/colace 1 tablet bid, Magnesium citrate 300ml daily prn. Adult immunization - Administer pneumonia vaccine, covid vaccine, flu vaccine as appropriate. DVT prophylaxis - Aspirin 81mg bid thru 01/17/2024. Coronary artery disease - Aspirin 81mg daily starting 01/18/2024. Vitamin D deficiency - D3 125mcg q48, D2 1.25mg qweek. Diabetes Mellitus II - Tradjenta 5mg daily, monitor sugar. Skin irritation - Eucerin topical bid. Hypothyroidism - [place] Thyroid 90mg daily. Medications at Discharge Home Medications aspirin 81 mg tablet,delayed release 81 mg PO DAILY heart health 12/20/23 cholecalciferol (vitamin D3) 125 mcg (5,000 unit) tablet (Vitamin D3) 125 mcg PO .QSU supplement 12/20/23 ergocalciferol (vitamin D2) 50,000 unit tablet 50,000 unit PO QODAY supplement 12/20/23 sitagliptin phosphate 25 mg tablet (Januvia) 25 mg PO DAILY diabetes 12/20/23 thyroid (pork) 90 mg tablet (Adthyza) 90 mg PO DAILY thyroid 12/20/23 acetaminophen 500 mg tablet 1,000 mg (2 x 500 mg) PO Q8 #0 tabs 01/11/24 gabapentin 100 mg capsule 100 mg PO TIDCM 30 days #90 caps 01/11/24 oxycodone 5 mg tablet 5 mg PO Q4H PRN PRN pain (scale score 6-10) 7 days #42 tabs 01/11/24 polysaccharide iron complex 150 mg iron capsule (Ferrex) 150 mg PO DAILYCM 30 days #30 caps 01/11/24 sennosides 8.6 mg-docusate sodium 50 mg tablet (Stimulant Laxative Plus) 1 tab PO BID 30 days #60 tabs 01/11/24 Hospital Course Operations - (See below.) Procedures None Summary of Care Provided Minutes Spent on Discharge: 35 Hospital Course: 88 year old female with below past medical history hospitalized for right hip fracture, underwent ORIF right hip fracture 12/18/2023, admitted to TCU with debility, here for rehabilitation, strengthening, prior to discharge home alone. Discharge home with granddaughter's assistance 01/19/2024, [facility] PT/OT/ST, bedside commode, transport wheelchair. Bedside commode: Patient is confined to a single room with no toilet. Patient is confined to one level of the home environment and there is no toilet on that level. Patient is confined to the home and there is no toilet in the home. Transport wheelchair: Patient has mobility limitation that cannot be sufficiently resolved by using a cane or walker. Use of a wheelchair will improve the participating of ADL's on a regular basis in the home. Physical Exam Const alert General Appearance: cooperative HEENT normocephalic Eyes PERRL and EOMs intact bilaterally Neck supple, no JVD and no carotid bruits Resp normal respiratory effort, normal air movement and clear to auscultation bilaterally Cardio regular rate and regular rhythm GI normal to inspection, nondistended, normoactive bowel sounds, non-tender and non-distended Extremity normal capillary refill General Extremity: Negative for edema Skin no rashes or lesions noted General Skin Exam: no breakdown Psych affect normal Appearance: appropriate Medical Records Data Medical Nutrition Assessment Dietitian: Malnutrition Criteria Met Start: 01/09/24 15:42 Freq: Status: Active Protocol: Document 01/09/24 15:43 SLA (Rec: 01/09/24 15:43 SLA [id number]) Nutrition Malnutrition Evidence of Malnutrition Exists Yes Malnutrition (moderate): Acute Illness/Injury Evidenced By Suboptimal Energy Intake ( Moderate),Weight Loss (Severe) Intake Problem None at this time Status Inactive Problem Clinical Problem Acute Disease or Injury Related Malnutrition Etiology related to inadequate energy intake Signs/Symptoms as evidenced by 8.8% wt loss and ~50% po intake x < 1 month Status Active Problem Recommendation Dietitian Recommendations/Changes Continue Regular diet w/ small portions per res request Add 4 oz ensure plus high protein 2x/day w/ medpass ( prefers chocolate) Weight / BMI Weight Weight: 63.73 kg Body Mass Index (BMI) 23.3 ABG / Lab / Microbiology Data 01/11/24 05:26 01/11/24 05:26 Laboratory: Laboratory Results - last 24 hr 01/11/24 05:26: WBC 5.9, RBC 2.82 L, Hgb 9.5 L, Hct 30.2 L, MCV 107.1 H, MCH 33.7 H, MCHC 31.5 L, RDW Std Deviation 57.6 H, RDW Coeff of Gigi 14.6, Plt Count 298, MPV 9.3, Immature Gran % (Auto) 0.700, Neut % (Auto) 57.3, Lymph % (Auto) 27.9, [place] % (Auto) 10.4 H, Eos % (Auto) 3.2, Baso % (Auto) 0.5, Absolute Neuts (auto) 3.4, Absolute Lymphs (auto) 1.66, Nucleated RBC % 0, Sodium 137, Potassium 4.3, Chloride 106, Carbon Dioxide 27.0, Anion Gap 4 L, BUN 20 H, Creatinine 0.75, Estim Creat Clear Calc 44.58, Est GFR (MDRD) Af Amer 94, Est GFR (MDRD) Non-Af 78, BUN/Creatinine Ratio 26.7 H, Glucose 138 H, Calcium 8.8 01/11/24 06:14: POC Glucose 121 H Microbiology: Microbiology 01/10/24 05:25 Nasal Secretion SARS-CoV-2 Antigen (Rapid) - Final 01/03/24 06:40 Nasal Secretion SARS-CoV-2 Antigen (Rapid) - Final 12/28/23 13:50 Urine, Clean Catch Urine Culture - Final 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 PT/OT/ST, bedside commode, transport wheelchair. Bedside commode: Patient is confined to a single room with no toilet. Patient is confined to one level of the home environment and there is no toilet on that level. Patient is confined to the home and there is no toilet in the home. Transport wheelchair: Patient has mobility limitation that cannot be sufficiently resolved by using a cane or walker. Use of a wheelchair will improve the participating of ADL's on a regular basis in the home. Please Follow Up With: Freddy Romero NP When: As scheduled. Meaningful Use Info Meaningful Use Meaningful Use Diagnoses (Choose all that apply): None applicable Ischemic Stroke Statin Dosing Therapy Reference: STATIN DOSE THERAPY REFERENCE: * Patients > 75 years receive moderate or high dose statin therapy. * Patients 75 years or YOUNGER should receive HIGH intensity statin dose unless contraindicated. You will be required to document reason for non-treatment if statin daily dose does not meet guidelines. HIGH DOSE STATIN THERAPY DAILY Atorvastatin > than or = to 40 mg Rosuvastatin > than or = to 20 mg Amlodipine + Atorvastatin > than or = to 2.5/40 mg Ezetimibe + Simvastatin 10/80 mg Simvastatin 80mg Discharge Plan Admission Admit Date/Time: 12/20/23 15:11 Primary Reason for Your Visit: Debility. Attending Provider: Allen Zaldivar Chi Instructions Additional Instructions / Restrictions: Discharge home with granddaughter's assistance 01/19/2024, [facility] PT/OT/ST, bedside commode, transport wheelchair. Bedside commode: Patient is confined to a single room with no toilet. Patient is confined to one level of the home environment and there is no toilet on that level. Patient is confined to the home and there is no toilet in the home. Transport wheelchair: Patient has mobility limitation that cannot be sufficiently resolved by using a cane or walker. Use of a wheelchair will improve the participating of ADL's on a regular basis in the home. Discharge Orders/Prescriptions Prescriptions: New acetaminophen 500 mg Tablet 1,000 mg PO Q8 Qty: 0 0RF polysaccharide iron complex [Ferrex 150] 150 mg iron Capsule 150 mg PO DAILYCM 30 Days Qty: 30 0RF gabapentin 100 mg Capsule 100 mg PO TIDCM 30 Days Qty: 90 0RF sennosides-docusate sodium [Stimulant Laxative Plus] 8.6-50 mg Tablet 1 tab PO BID 30 Days Qty: 60 0RF oxycodone 5 mg Tablet 5 mg PO Q4H PRN PRN (Reason: pain (scale score 6-10)) 7 Days Qty: 42 0RF Continued thyroid (pork) [Adthyza] 90 mg tablet 90 mg PO DAILY ergocalciferol (vitamin D2) 50,000 unit tablet 50,000 unit PO QODAY Patient Comments: patient takes every other day at home Januvia 25 mg tablet 25 mg PO DAILY cholecalciferol (vitamin D3) [Vitamin D3] 125 mcg (5,000 unit) tablet 125 mcg PO .QSU Patient Comments: patient takes once a week on Sundays aspirin 81 mg tablet,delayed release (DR/EC) 81 mg PO DAILY Patient Comments: patient to start taking on January 18, 2024. Discontinued acetaminophen 325 mg tablet 650 mg PO Q6H PRN (Reason: pain (scale score 1-5)) oxycodone 5 mg tablet 5 mg PO Q8H PRN (Reason: pain (scale score 6-10)) aspirin 81 mg tablet,delayed release (DR/EC) 81 mg PO BID Patient Comments: Patient should take until January 17, 2024. Disposition Disposition (needs filled in before D/C Order can be placed): Home Health Service
[2024-01-11 20:00] VITALS: PULSE 72; O2SAT 96
[2024-01-11] MEDS: Senna/Docusate Sodium 1 Tablet PO (20:46)
[2024-01-11] MEDS: oxyCODONE 5 MG Tablet PO (20:50)
[2024-01-12 04:50] VITALS: PULSE 66; O2SAT 97
[2024-01-12] MEDS: Thyroid 60 MG Tablet 90 MG PO (06:06)
[2024-01-12] MEDS: Acetaminophen 500 MG Tablet 1000 MG PO ×3 (06:06→21:24)
[2024-01-12 06:37] LABS: Bedside Glucose 103 mg/dL (74-106)
[2024-01-12] MEDS: Petrolatum 33% Tube 1 APPLIC TOPICAL ×2 (08:04→21:24)
[2024-01-12] MEDS: Senna/Docusate Sodium 1 Tablet PO ×2 (08:04→21:24)
[2024-01-12] MEDS: LINAGLIPTIN 5 MG TABLET PO (08:04)
[2024-01-12] MEDS: Aspirin E.C. 81 MG Tablet PO ×2 (08:04→16:52)
[2024-01-12] MEDS: Menthol/Lanolin/Calamine/Znox 113 GM Tube 1 APPLIC TOPICAL ×2 (08:04→21:24)
[2024-01-12] MEDS: Iron Polysaccharide Complex 150 MG CAPSULE PO (08:04)
[2024-01-12] MEDS: Gabapentin 100 MG Capsule PO ×3 (08:04→16:52)
[2024-01-12] MEDS: Ensure Plus High Protein 120 ML LIQUID PO (08:04)
[2024-01-12 09:19] VITALS: BP 125/40; PULSE 63; RESP 16; TEMP 36; O2SAT 98
--- NOTE | 2024-01-12 20:11 | NURSING ---
RELL repots patient rep/dtr Zulma called requesting BLADIMIR for Sunday Morning 01/13/24 approx 11am to go to a baseball game. Dr. Zaldivar notified of request phone, Ok for BLADIMIR 01/13/24 for ball game.
[2024-01-13] MEDS: Acetaminophen 500 MG Tablet 1000 MG PO ×3 (05:24→21:01)
[2024-01-13] MEDS: oxyCODONE 5 MG Tablet PO ×2 (05:24→12:16)
[2024-01-13] MEDS: Thyroid 60 MG Tablet 90 MG PO (05:25)
[2024-01-13 05:31] VITALS: PULSE 69; RESP 16; O2SAT 96
[2024-01-13 06:29] LABS: Bedside Glucose 135 mg/dL (74-106)
[2024-01-13] MEDS: Petrolatum 33% Tube 1 APPLIC TOPICAL ×2 (08:05→21:00)
[2024-01-13] MEDS: Menthol/Lanolin/Calamine/Znox 113 GM Tube 1 APPLIC TOPICAL ×2 (08:06→21:00)
[2024-01-13] MEDS: LINAGLIPTIN 5 MG TABLET PO (08:07)
[2024-01-13] MEDS: Ensure Plus High Protein 120 ML LIQUID PO ×2 (08:07→20:59)
[2024-01-13] MEDS: Senna/Docusate Sodium 1 Tablet PO ×2 (08:07→21:01)
[2024-01-13] MEDS: Aspirin E.C. 81 MG Tablet PO ×2 (08:07→17:56)
[2024-01-13] MEDS: Cholecalciferol (Vit D3) 125 MCG CAPSULE (5,000 UNITS) PO (08:07)
[2024-01-13] MEDS: Iron Polysaccharide Complex 150 MG CAPSULE PO (08:07)
[2024-01-13] MEDS: Gabapentin 100 MG Capsule PO ×3 (08:07→17:56)
[2024-01-13] MEDS: Ergocalciferol 1.25 MG (50, 000 UNIT) Capsule PO (08:07)
--- NOTE | 2024-01-13 12:17 | NURSING ---
Pt left TCU accompanied by family at 12:15 for BLADIMIRTarsha Lackey RN
--- NOTE | 2024-01-13 15:33 | NURSING ---
Patient returned to the unit at this time.
[2024-01-13 17:53] VITALS: BP 143/38; PULSE 62; RESP 17; TEMP 36.4; O2SAT 96
[2024-01-14] MEDS: Thyroid 60 MG Tablet 90 MG PO (05:30)
[2024-01-14] MEDS: Acetaminophen 500 MG Tablet 1000 MG PO ×3 (05:31→22:10)
[2024-01-14 06:26] LABS: Bedside Glucose 128 mg/dL (74-106)
[2024-01-14] MEDS: Iron Polysaccharide Complex 150 MG CAPSULE PO (07:55)
[2024-01-14] MEDS: Gabapentin 100 MG Capsule PO ×3 (07:55→17:17)
[2024-01-14] MEDS: Menthol/Lanolin/Calamine/Znox 113 GM Tube 1 APPLIC TOPICAL ×2 (07:55→22:10)
[2024-01-14] MEDS: Aspirin E.C. 81 MG Tablet PO ×2 (07:55→17:16)
[2024-01-14] MEDS: Senna/Docusate Sodium 1 Tablet PO (07:55)
[2024-01-14] MEDS: Ensure Plus High Protein 120 ML LIQUID PO ×2 (07:55→22:12)
[2024-01-14] MEDS: LINAGLIPTIN 5 MG TABLET PO (07:55)
[2024-01-14] MEDS: Petrolatum 33% Tube 1 APPLIC TOPICAL ×2 (07:56→22:11)
[2024-01-14 09:09] VITALS: BP 131/52; PULSE 61; RESP 18; TEMP 36.2; O2SAT 98
[2024-01-15] MEDS: Acetaminophen 500 MG Tablet 1000 MG PO ×3 (06:00→20:46)
[2024-01-15] MEDS: Thyroid 60 MG Tablet 90 MG PO (06:01)
[2024-01-15] MEDS: Gabapentin 100 MG Capsule PO ×3 (09:14→18:20)
[2024-01-15] MEDS: Iron Polysaccharide Complex 150 MG CAPSULE PO (09:14)
[2024-01-15] MEDS: Aspirin E.C. 81 MG Tablet PO ×2 (09:15→18:21)
[2024-01-15] MEDS: Cholecalciferol (Vit D3) 125 MCG CAPSULE (5,000 UNITS) PO (09:15)
[2024-01-15] MEDS: LINAGLIPTIN 5 MG TABLET PO (09:15)
[2024-01-15] MEDS: Ensure Plus High Protein 120 ML LIQUID PO ×2 (09:17→20:45)
[2024-01-15] MEDS: Petrolatum 33% Tube 1 APPLIC TOPICAL ×2 (09:18→20:47)
[2024-01-15] MEDS: Menthol/Lanolin/Calamine/Znox 113 GM Tube 1 APPLIC TOPICAL ×2 (09:18→21:18)
[2024-01-15 10:37] VITALS: BMI 23.1
[2024-01-15 16:00] VITALS: BP 119/42; PULSE 73; RESP 16; TEMP 36.3; O2SAT 98
[2024-01-16] MEDS: Acetaminophen 500 MG Tablet 1000 MG PO ×3 (05:40→21:03)
[2024-01-16] MEDS: Thyroid 60 MG Tablet 90 MG PO (05:41)
[2024-01-16 06:52] LABS: Bedside Glucose 110 mg/dL (74-106)
[2024-01-16] MEDS: Aspirin E.C. 81 MG Tablet PO ×2 (08:07→17:38)
[2024-01-16] MEDS: Gabapentin 100 MG Capsule PO ×3 (08:07→17:38)
[2024-01-16] MEDS: Iron Polysaccharide Complex 150 MG CAPSULE PO (08:07)
[2024-01-16] MEDS: Menthol/Lanolin/Calamine/Znox 113 GM Tube 1 APPLIC TOPICAL ×2 (08:07→21:02)
[2024-01-16] MEDS: Petrolatum 33% Tube 1 APPLIC TOPICAL ×2 (08:07→21:02)
[2024-01-16] MEDS: LINAGLIPTIN 5 MG TABLET PO (08:07)
[2024-01-16 15:35] VITALS: BP 125/52; PULSE 74; RESP 18; TEMP 35.8; O2SAT 98
[2024-01-16 20:00] VITALS: PULSE 74; O2SAT 98
[2024-01-16] MEDS: Ensure Plus High Protein 120 ML LIQUID PO (21:03)
[2024-01-17] MEDS: oxyCODONE 5 MG Tablet PO (06:22)
[2024-01-17] MEDS: Thyroid 60 MG Tablet 90 MG PO (06:23)
[2024-01-17] MEDS: Acetaminophen 500 MG Tablet 1000 MG PO ×3 (06:23→20:24)
[2024-01-17 06:44] LABS: Bedside Glucose 124 mg/dL (74-106)
[2024-01-17 07:56] VITALS: BP 115/45; PULSE 60; RESP 17; TEMP 36.4; O2SAT 100
[2024-01-17] MEDS: Iron Polysaccharide Complex 150 MG CAPSULE PO (07:58)
[2024-01-17] MEDS: Aspirin E.C. 81 MG Tablet PO ×2 (07:58→17:23)
[2024-01-17] MEDS: Menthol/Lanolin/Calamine/Znox 113 GM Tube 1 APPLIC TOPICAL ×2 (07:58→20:24)
[2024-01-17] MEDS: LINAGLIPTIN 5 MG TABLET PO (07:59)
[2024-01-17] MEDS: Petrolatum 33% Tube 1 APPLIC TOPICAL ×2 (07:59→20:24)
[2024-01-17] MEDS: Cholecalciferol (Vit D3) 125 MCG CAPSULE (5,000 UNITS) PO (07:59)
[2024-01-17] MEDS: Gabapentin 100 MG Capsule PO ×3 (08:01→17:23)
--- NOTE | 2024-01-17 16:02 | NURSING ---
Updated patient that another patient and a staff member tested positive for covid. She did not want to have family updated.
[2024-01-18] MEDS: Thyroid 60 MG Tablet 90 MG PO (05:32)
[2024-01-18] MEDS: Acetaminophen 500 MG Tablet 1000 MG PO ×3 (05:33→22:15)
[2024-01-18 06:08] LABS: Absolute Lymphocyte Count 1.75 X10^3/uL (0.83-4.51); Absolute Neutrophil Count 2.3 X10^3/uL (2.0-7.7); Basophil# 0.02 X10^3/uL; Basophil% 0.4 % (0-1); Eosinophil# 0.21 X10^3/uL; Eosinophils% 4.3 % (0-5); Hematocrit 31.3 % (37-47); Hemoglobin 10.1 g/dL (12.0-15.0); Lymphocyte # 1.75 X10^3/ul (0.83-4.51); Lymphocyte % 35.9 % (19-41); Mean Corp Hgb Conc 32.3 g/dL (32-36); Mean Corpuscular Hgb 33.8 pg (27.0-32.0); Mean Corpuscular Volume 104.7 fL (81-99); Mean Platelet Vol. 9.2 fl (6.2-12.0); Monocyte# 0.61 X10^3/uL; Monocyte% 12.5 % (0-10); NRBC Flagged by Analyzer 0 % (0-5); Neutrophil # 2.26 X10^3/uL (2.7-7.7); Neutrophil % 46.5 % (47-70); Platelet Count 262 K/mm3 (150-450); RBC Distribution Width SD 53.6 fl (35.1-43.9); Red Blood Count 2.99 M/mm3 (4.2-5.4); White Blood Count 4.9 K/mm3 (4.4-11.0)
[2024-01-18 06:43] LABS: Anion Gap 6 (5-15); BUN 21 mg/dL (7-18); BUN/Creat Ratio 29.7 RATIO (10-20); Chloride 108 mmol/L (98-107); Creatinine, Serum 0.71 mg/dL (0.55-1.02); EST Glomerular Filtration Rate 83 mL/min (>60); Est Glom Filt Rate - Afr Amer 101 mL/min (>60); Estimated Creatinine Clearance 44.58 ml/min; Glucose 118 mg/dL (74-106); Potassium 4.1 mmol/L (3.5-5.1); Sodium Level 140 mmol/L (136-145)
[2024-01-18 07:05] LABS: Bedside Glucose 125 mg/dL (74-106)
[2024-01-18] MEDS: Ensure Plus High Protein 120 ML LIQUID PO ×2 (07:43→22:14)
[2024-01-18] MEDS: LINAGLIPTIN 5 MG TABLET PO (07:43)
[2024-01-18] MEDS: Aspirin E.C. 81 MG Tablet PO (07:43)
[2024-01-18] MEDS: Gabapentin 100 MG Capsule PO ×3 (07:43→17:10)
[2024-01-18] MEDS: Iron Polysaccharide Complex 150 MG CAPSULE PO (07:43)
[2024-01-18] MEDS: Menthol/Lanolin/Calamine/Znox 113 GM Tube 1 APPLIC TOPICAL ×2 (07:44→22:14)
[2024-01-18] MEDS: Petrolatum 33% Tube 1 APPLIC TOPICAL ×2 (07:44→22:14)
--- NOTE | 2024-01-18 09:05 | MDS.RN ---
MDS pain interview complete.
--- NOTE | 2024-01-18 09:41 | CASEMGMT ---
Social Work SW conducted BIMS () and PHQ-2 () completed for MDS assessment. Simran Esquivel MSW BLUEPRINT ASSEMBLER
[2024-01-18 10:22] VITALS: BP 129/46; PULSE 72; RESP 16; TEMP 36.3; O2SAT 96
[2024-01-19 03:25] VITALS: PULSE 76; O2SAT 98
[2024-01-19] MEDS: Acetaminophen 500 MG Tablet 1000 MG PO (05:19)
[2024-01-19] MEDS: Thyroid 60 MG Tablet 90 MG PO (05:21)
[2024-01-19] MEDS: oxyCODONE 5 MG Tablet PO (05:27)
[2024-01-19 06:54] LABS: Bedside Glucose 138 mg/dL (74-106)
[2024-01-19] MEDS: Cholecalciferol (Vit D3) 125 MCG CAPSULE (5,000 UNITS) PO (08:23)
[2024-01-19] MEDS: Petrolatum 33% Tube 1 APPLIC TOPICAL (08:23)
[2024-01-19] MEDS: LINAGLIPTIN 5 MG TABLET PO (08:23)
[2024-01-19] MEDS: Gabapentin 100 MG Capsule PO ×2 (08:23→12:53)
[2024-01-19] MEDS: Iron Polysaccharide Complex 150 MG CAPSULE PO (08:23)
[2024-01-19] MEDS: Aspirin E.C. 81 MG Tablet PO (08:23)
[2024-01-19] MEDS: Menthol/Lanolin/Calamine/Znox 113 GM Tube 1 APPLIC TOPICAL (08:24)
[2024-01-19 12:57] VITALS: BP 129/50; PULSE 73; RESP 16; TEMP 36.6; O2SAT 99
== END 2024-01-19 12:54 | disposition home health service (06) | DRG 560 ==
PROVIDERS: Admitting Provider Family Medicine Geriatric Medicine; Visit Provider Family Medicine Geriatric Medicine
DX: S72.001D Fracture of unspecified part of neck of right femur, subsequent encounter for closed fracture with routine healing (principal); E44.1 Mild protein-calorie malnutrition; E11.9 Type 2 diabetes mellitus without complications; E03.9 Hypothyroidism, unspecified; I25.10 Atherosclerotic heart disease of native coronary artery without angina pectoris; E55.9 Vitamin D deficiency, unspecified; F17.210 Nicotine dependence, cigarettes, uncomplicated; E78.5 Hyperlipidemia, unspecified; W19.XXXD Unspecified fall, subsequent encounter; M17.11 Unilateral primary osteoarthritis, right knee; M54.31 Sciatica, right side; Z79.82 Long term (current) use of aspirin; Z79.899 Other long term (current) drug therapy; Z79.890 Hormone replacement therapy; Z79.83 Long term (current) use of bisphosphonates; M81.0 Age-related osteoporosis without current pathological fracture; Z68.24 Body mass index [BMI] 24.0-24.9, adult
CPT/HCPCS: 36415; 73502; 73562; 73610; 80048; 81001; 82962; 85014; 85018; 85025; 87086; 87088; 87811; 92507; 92523; 97110; 97116; 97129; 97130; 97162; 97166; 97530; 97535

== ENCOUNTER → 2023-12-28 | Outpatient (CLI) | payer MEDICARE, BC, SELFPAY ==
--- NOTE | 2023-12-28 09:51 | VDLE_ITS ---
Reason For Study: Pain RLE RIGHT LEFT GSV is normal. CFV is compressible, spontaneous, phasic, CFV is compressible, spontaneous, phasic, competent, and demonstrates normal competent and demonstrates normal augmentation. augmentation. FV is compressible, spontaneous, phasic, competent and demonstrates normal augmentation. POP V is compressible, spontaneous, phasic, competent and demonstrates normal augmentation. T/P Trunk is compressible. PTV is compressible. RT PerV is compressible. Procedure This is a venous duplex using B-mode, color flow and spectral Doppler. Exam performed portable in patient room. A preliminary report was called and/or faxed to Patient's RN. VL/Venous Duplex US, Unilateral Interpretation Summary Deep veins of the right lower extremity are patent and compressible segmentally . There is no evidence of right lower extremity deep vein thrombosis. The right great sapheno us vein appears patent and compressible segmentally. Ordering Physician: Allen Zaldivar Chi Referring Physician: Allen Zaldivar Chi Performed By: Nevaeh Frank, JAIR, RVT
== END | disposition home or self-care (01) ==
LOC: CVS 09:51
PROVIDERS: Referring Provider Family Medicine Geriatric Medicine; Visit Provider Family Medicine Geriatric Medicine
DX: M79.661 Pain in right lower leg (principal)
CPT/HCPCS: 93971

== ENCOUNTER 2024-02-08 12:26 | Outpatient (RCR) | payer MEDICARE, BC, SELFPAY ==
[2024-02-08 13:27] LABS: Color, Urine Yellow (Yellow); Glucose, Dipstick Normal (Normal); Ketone-Dipstick Negative (Negative); Leukocyte Esterase-Dipstick 500 /ul (Negative); Nitrite-Dipstick Positive (Negative); Occult Blood-Urine 10 /ul (Negative); Protein-Dipstick 30 mg/dl (Negative); Urine Bilirubin Dipstick Negative (Negative); Urine Clarity Cloudy (Clear); Urine Urobilinogen Normal (Normal)
== END 2024-02-08 18:00 | disposition home or self-care (01) ==
LOC: HHLAB 12:26
PROVIDERS: PCP Hospitalist
DX: S72.001D Fracture of unspecified part of neck of right femur, subsequent encounter for closed fracture with routine healing (principal)
CPT/HCPCS: 81002; 87077; 87086; 87088; 87186